=== PATIENT | female | born 1995 | race Caucasian/White ===

== ENCOUNTER 2018-02-19 08:45 | Inpatient (IN) | payer MEDICAID ==
[2018-02-19] MEDS ORDERED: LIDOCAINE 1% (MPF) 30 ML INJ INJ (11:30)
[2018-02-19] MEDS ORDERED: OXYTOCIN 30 UNITS/LR 500 ML IV (11:30)
[2018-02-19] MEDS ORDERED: CARBOPROST 250 MCG INJ IM (11:30)
[2018-02-19] MEDS ORDERED: IBUPROFEN 600 MG TAB PO (11:30)
[2018-02-19] MEDS ORDERED: BUTORPHANOL 2 MG INJ IV (11:30)
[2018-02-19 11:50] LABS: ADD MAN DIFF? NO
[2018-02-19 11:54] LABS: BASOPHILS % 0.4 % (0.0-2.0); EOSINOPHILS # 0.1 10^3/ul (0.0-0.5); HEMATOCRIT 34.1 % (37.0-47.0); HEMOGLOBIN 11.1 g/dl (12.0-16.0); LYMPHOCYTES % 18.3 % (18.0-55.0); MEAN CORPUSCULAR HEMOGLOBIN 27.9 pg (29.0-33.0); MEAN CORPUSCULAR HGB CONC 32.6 g/dl (32.0-37.0); MEAN CORPUSCULAR VOLUME 85.7 fl (72.0-104.0); MEAN PLATELET VOLUME 11.4 fl (7.4-10.4); MONOCYTE # 0.8 10^3/ul (0.3-0.9); MONOCYTES % 7.6 % (0.0-13.0); NEUTROPHIL # 7.9 10^3/ul (1.6-7.5); NEUTROPHILS % 71.9 % (30.0-74.0); PLATELET COUNT 177 10^3/UL (140-415); RED BLOOD COUNT 3.98 10^6/ul (4.20-5.40); RED CELL DISTRIBUTION WIDTH 14.5 % (11.5-14.5)
[2018-02-19 12:13] LABS: INR 0.92; PARTIAL THROMBOPLASTIN TIME 26.4 Sec (23.0-35.0); PROTIME 12.4 Sec (11.9-14.9)
[2018-02-19] MEDS: AMPICILLIN 2 GM/NS (PMX) 100 ML IV (12:24)
[2018-02-19] MEDS: LACTATED RINGER'S 1,000 ML IV* ×2 (12:24→19:30)
[2018-02-19] MEDS: MISOPROSTOL 50 MCG CAPSULE PO ×3 (13:42→22:29)
[2018-02-19] MEDS: AMPICILLIN 1 GM/NS (PMX) 50 ML IV ×2 (16:09→20:30)
[2018-02-19 16:53] LABS: RAPID PLASMA REAGIN NONREACTIVE (NR)
[2018-02-20] MEDS: AMPICILLIN 1 GM/NS (PMX) 50 ML IV ×5 (00:02→15:52)
[2018-02-20] MEDS: LACTATED RINGER'S 1,000 ML IV* ×2 (03:59→11:24)
[2018-02-20] MEDS: MISOPROSTOL 50 MCG CAPSULE PO ×4 (03:59→13:00)
[2018-02-20] MEDS ORDERED: FENTAnyl 2MCG/ML-ROPIV 0.2% 100 ML (07:24)
[2018-02-20] MEDS ORDERED: NALOXONE (0.4 MG/ML) INJ IV (07:30)
[2018-02-20] MEDS ORDERED: DIPHENHYDRAMINE 50 MG INJ IV (07:30)
[2018-02-20] MEDS: LACTATED RINGER'S 1,000 ML IV (07:42)
[2018-02-20] MEDS: FENTAnyl 2MCG/ML-ROPIV 0.2% 100 ML BAG EPI (09:15)
[2018-02-20] MEDS ORDERED: OXYTOCIN 30 UNITS/LR 500 ML IV ×2 (09:30→18:00)
[2018-02-20] MEDS: MINERAL OIL LIGHT 10 ML VIAL TOP (15:12)
[2018-02-20] MEDS: METHYLERGONOVINE 0.2 MG INJ IM (15:19)
[2018-02-20] MEDS: OXYTOCIN 30 UNITS/LR 500 ML IV ×4 (15:21→17:35)
[2018-02-20] MEDS: MISOPROSTOL 200 MCG TAB PR (15:22)
[2018-02-20] MEDS: ONDANSETRON 4 MG INJ IV (16:08)
[2018-02-20] MEDS ORDERED: DIPHENHYDRAMINE 25 MG CAP PO (18:00)
[2018-02-20] MEDS ORDERED: METHYLERGONOVINE 0.2 MG INJ IM (18:00)
[2018-02-20] MEDS ORDERED: LANOLIN 7 GM TUBE TOP (18:00)
[2018-02-20] MEDS ORDERED: NACL 0.9% 3 ML SYG IV (18:00)
[2018-02-20] MEDS ORDERED: ACETAMINOPHEN 325 MG TAB PO (18:00)
[2018-02-20] MEDS ORDERED: ZOLPIDEM 5 MG TAB PO (18:00)
[2018-02-20] MEDS ORDERED: MISOPROSTOL 200 MCG TAB PR (18:00)
[2018-02-20] MEDS ORDERED: ONDANSETRON 4 MG INJ IV (18:00)
[2018-02-20] MEDS ORDERED: CARBOPROST 250 MCG INJ IM (18:00)
[2018-02-20] MEDS: IBUPROFEN 600 MG TAB PO ×2 (18:22→19:07)
[2018-02-20] MEDS: WITCH HAZEL/GLYCERIN PAD PR (19:24)
[2018-02-20] MEDS: SENNA/DOCUSATE NA (8.6MG/50MG) TAB PO (22:02)
[2018-02-21] MEDS: IBUPROFEN 600 MG TAB PO ×4 (00:15→17:46)
[2018-02-21 07:22] LABS: ADD MAN DIFF? NO
[2018-02-21 07:23] LABS: WHITE BLOOD COUNT 19.1 10^3/ul (4.8-10.8)
[2018-02-21 07:23] LABS: ABNORMAL IP MESSAGE 1; BASOPHILS % 0.2 % (0.0-2.0); EOSINOPHILS # 0.1 10^3/ul (0.0-0.5); EOSINOPHILS % 0.4 % (0.0-7.0); HEMATOCRIT 30.6 % (37.0-47.0); HEMOGLOBIN 9.8 g/dl (12.0-16.0); LYMPHOCYTES # 2.3 10^3/ul (0.8-2.9); LYMPHOCYTES % 12.1 % (18.0-55.0); MEAN CORPUSCULAR HEMOGLOBIN 27.4 pg (29.0-33.0); MEAN CORPUSCULAR VOLUME 85.5 fl (72.0-104.0); MEAN PLATELET VOLUME 10.7 fl (7.4-10.4); MONOCYTE # 1.6 10^3/ul (0.3-0.9); MONOCYTES % 8.4 % (0.0-13.0); NEUTROPHILS % 78.3 % (30.0-74.0); PLATELET COUNT 160 10^3/UL (140-415); RED BLOOD COUNT 3.58 10^6/ul (4.20-5.40); RED CELL DISTRIBUTION WIDTH 14.6 % (11.5-14.5)
[2018-02-21 07:25] LABS: POSITIVE DIFF @See below
[2018-02-21] MEDS: SENNA/DOCUSATE NA (8.6MG/50MG) TAB PO ×2 (09:13→21:11)
[2018-02-21] MEDS: INFLUENZA VIRUS VACCINE 0.5 ML (DISPENSING) IM* (16:11)
[2018-02-22] MEDS: IBUPROFEN 600 MG TAB PO ×4 (00:13→18:11)
[2018-02-22] MEDS: SENNA/DOCUSATE NA (8.6MG/50MG) TAB PO (08:16)
[2018-02-22] MEDS: HYDROCODONE/APAP (5/325) TAB PO (08:16)
[2018-02-22] MEDS: VARICELLA VACCINE LIVE/PF 1,350 UNIT/0.5 ML ML SC* (09:00)
[2018-02-22] MEDS: MEASLES,MUMPS,RUBELLA VACCINE INJ SC* (09:00)
[2018-02-22 09:24] LABS: ADD MAN DIFF? NO
[2018-02-22 09:28] LABS: WHITE BLOOD COUNT 12.2 10^3/ul (4.8-10.8)
[2018-02-22 09:28] LABS: BASOPHIL # 0.1 10^3/ul (0.0-0.1); BASOPHILS % 0.4 % (0.0-2.0); EOSINOPHILS # 0.1 10^3/ul (0.0-0.5); EOSINOPHILS % 1.1 % (0.0-7.0); HEMATOCRIT 30.9 % (37.0-47.0); HEMOGLOBIN 9.8 g/dl (12.0-16.0); LYMPHOCYTES % 16.2 % (18.0-55.0); MEAN CORPUSCULAR HEMOGLOBIN 27.3 pg (29.0-33.0); MEAN CORPUSCULAR HGB CONC 31.7 g/dl (32.0-37.0); MEAN CORPUSCULAR VOLUME 86.1 fl (72.0-104.0); MEAN PLATELET VOLUME 10.7 fl (7.4-10.4); MONOCYTE # 0.7 10^3/ul (0.3-0.9); MONOCYTES % 5.8 % (0.0-13.0); NEUTROPHIL # 9.2 10^3/ul (1.6-7.5); NEUTROPHILS % 75.6 % (30.0-74.0); PLATELET COUNT 191 10^3/UL (140-415); RED BLOOD COUNT 3.59 10^6/ul (4.20-5.40); RED CELL DISTRIBUTION WIDTH 15.1 % (11.5-14.5)
[2018-02-22] MEDS: DIPHTH/TET/ACEL PERTUSS (ADULT) 0.5 ML VIAL IM* (11:49)
== END 2018-02-22 19:00 | disposition home or self-care (01) | DRG 807 ==
LOC: L-D 08:45 → PP1 02-20 17:24
PROVIDERS: Obstetrics & Gynecology
PROC: 3E033VJ Introduction of Other Hormone into Peripheral Vein, Percutaneous Approach (ICD-10-PCS; 2018-02-19 07:30)
DX: O36.63X0 Maternal care for excessive fetal growth, third trimester, not applicable or unspecified (principal); O66.0 Obstructed labor due to shoulder dystocia; O70.0 First degree perineal laceration during delivery; M25.552 Pain in left hip; Z3A.40 40 weeks gestation of pregnancy; Z37.0 Single live birth
CPT/HCPCS: 62319; 85025; 85610; 85730; 86592; 86850; 86900; 86901; 90686; 90715; 90716